=== PATIENT | female | born 1995 | race Caucasian/White ===

== ENCOUNTER 2018-01-17 21:17 | Emergency (ER) | payer BC, OTHER ==
[~2018-01-17] VITALS: Ht 162.6 cm; Wt 80.7 kg
[~2018-01-17 21:17] MED LIST: HYDROCODONE-ACE15 M2 PO; SPRINTEC1 EACH PO
[2018-01-17] MEDS ORDERED: ONE DAILY WOME1 EACH PO (21:29)
[2018-01-17] MEDS ORDERED: SUPER TWIN EP1250 MG PO (21:30)
[2018-01-17] MEDS ORDERED: TYLENOL WITH C1 EACH PO (21:31)
[2018-01-17] MEDS ORDERED: NORCO 5-325 TA1 EACH PO (22:55)
== END 2018-01-17 23:17 | disposition home or self-care (01) ==
LOC: ED 21:17
DX: R10.9 Unspecified abdominal pain (principal); M54.9 Dorsalgia, unspecified; T40.2X5A Adverse effect of other opioids, initial encounter; Z87.891 Personal history of nicotine dependence; Z88.5 Allergy status to narcotic agent; Z79.899 Other long term (current) drug therapy
CPT/HCPCS: 99283

== ENCOUNTER 2023-04-01 19:39 | Inpatient (IN) | payer OTHER ==
[~2023-04-01] VITALS: Ht 162.6 cm; Wt 90.4 kg
--- NOTE | ~2023-04-01 | PATH ---
[facility] [address] [place], [place] [address] Draft SPECIMEN(S): A PLACENTA SPECIMEN SOURCE: A. PLACENTA CLINICAL HISTORY: Mother's age: 25. OB history: A1 (elective). Gestational age: 39+. score: 8/9. Specific issues of concern: Non-reassuring heart tones/ intolerance to labor; patient with COVID; meconium. FINAL PATHOLOGIC DIAGNOSIS: Placenta (EGA: 39+ weeks): - Umbilical cord: - Three-vessel. - Acute funisitis. - membranes: - Marginal insertion. - Acute chorioamnionitis. - Placental disc: - 511-grams (50-75 percentile). - Amniotic surface with acute inflammation within vessels. - No villitis or neoplasm identified. JLP:mfr:C2NR MICROSCOPIC EXAMINATION: Histologic sections of all submitted blocks are examined by light microscopy. These findings, together with the gross examination, support the pathologic diagnosis. GROSS DESCRIPTION: The specimen, labeled and designated "[place], placenta," is received in formalin and consists of a ramirez discoid placenta with the following parameters: Umbilical cord: Insertion eccentric, measurement 24.2 cm in length x 1.2 cm in diameter; trivascular. Cord coiling index (per 10 cm): Two. Lesions: Not grossly identified. Membranes: Insertion site: Marginal, krishna/translucent. Other: Not grossly identified. Chorionic Plate: Normal radiating vascular pattern, blue-purple and shiny. Lesions: Not grossly identified. Other: Not grossly identified. PATIENT NAME: YOSELYN GILES PATHOLOGY DATE OF : [birth year] REPORT #: [id number] PHYSICIAN: SOFIA ROMERO PCP: SERGEI CASTELLANOS NP REPORT IS CONFIDENTIAL AND NOT TO BE RELEASED WITHOUT AUTHORIZATION [facility] [address] [place], [place] [address] Draft Maternal Surface: Normal cotyledons, intact. Lesions: Not grossly identified. Measurement: 17.0 x 16.0 x 5.3 cm; 511 g. Cut Surface: Maroon and spongy. Lesions: Not grossly identified. Basal plate fibrin 0.1 cm in thickness. Other Findings: Not grossly identified. Cassette Summary: (A1) Membranes and umbilical cord (A2) Placenta parenchyma (A3) Placenta parenchyma (A4) Placenta parenchyma AC (under the direct supervision of a pathologist) The Gross Description was prepared using a voice recognition system. The report was reviewed for accuracy; however, sound-alike word errors, addition and/or deletions may occur. If there is any question about this report, please contact Client Services. PERFORMING LABORATORY: Technical component was performed by [facility], [address] [place] [id number] (CLIA# [id number]). Professional interpretation was performed by [facility], [address] [place] [id number] (CLIA#: [id number]). Diagnostician: Urbano Wetzel MD Pathologist Electronically Signed 04/04/2023 Copies: ~ PATIENT NAME: YOSELYN GILES PATHOLOGY DATE OF : [birth year] REPORT #: [id number] PHYSICIAN: SOFIA ROMERO PCP: SERGEI CASTELLANOS NP REPORT IS CONFIDENTIAL AND NOT TO BE RELEASED WITHOUT AUTHORIZATION
[~2023-04-01 19:39] MED LIST changes: +NORCO 5-325 TA1 EACH PO; +ONE DAILY WOME1 EACH PO; +SUPER TWIN EP1250 MG PO; +TYLENOL WITH C1 EACH PO
--- NOTE | 2023-04-01 23:36 | PR ---
[facility] [address] [place], [place] [address] Signed Progress Notes IP Datetime Report Generated by PETTY: 04/01/2023 23:35 PROGRESS NOTES: [id number] Impression: Normal Progression of Labor; Reassuring Heart Rate Procedures: Artificial ROM; Sterile Vag Exam Plan: Continue Present Management; Anesthesia Consult VITAL SIGNS: [id number] Vital Signs: Reviewed VS Notable Details: HTN EXAM: [id number] Dilatation: 4.0 Effacement: 70 Station: -2 Contractions: q 2 to 4 min min MEMBRANES: [id number] Comments: Discussed her COVID test which was done on 03/23 though she became ill on 03/22. Progressing. status with some reserve given the accel with exam but unclear whether or not the fetus will tolerate strong and regular contractions. Will proceed with epidural now for pain management. BP entered severe range and she received labetalol. Will continue to closely observe. Will start mag sulfate for seizure prophylaxis now. FETUS A: [id number] FHR Baseline: 150 Variability: Moderate 6-25bpm Accelerations: None Decelerations: None FHR Category: Category II Presentation: Vertex Comments on Fetus A: reassuring with moderate variability currently FETUS B: [id number] Signing Physician: Jennifer Scott MD Copies: ~ *Electronically Signed* 04/01/23 4871 JENNIFER SCOTT MD PATIENT NAME: YOSELYN GILES PROGRESS NOTE DATE OF : [birth year] PHYSICIAN: JENNIFER SCOTT MD RPT #: [id number] REPORT IS CONFIDENTIAL AND NOT TO BE RELEASED WITHOUT AUTHORIZATION
[2023-04-02 06:47] VITALS: BP 95/84
--- NOTE | 2023-04-02 07:41 | NUR ---
04/02/23 0741 DillonLynne storm Thu 0631- PT TO PACU SLEEPING, LR WITH 30 UNITS OF PITOCIN INFUSING TO RAC 20 G IV, WNL. 20 G TO LW SALINE LOCK, WNL. TIGRE FLORES AT BEDSIDE, DTR 1+ NO CLONUS. FUNDUS FIRM AND 1 BELOW UMBILICUS. SMALL CLOTS ON BELKYS PAD. 0645- PT TO GO BACK TO [facility], ALERT AND ORIENTED, SHAKING BUT WARM. WARM BLANKETS PROVIDED. FUNDUS REMAINS FIRM AND 1 BELOW THE UMBILICUS, NO FURTHER DRAINAGE. OVIEDO CATHETER DRAINED, CLEAR YELLOW URINE. DTR 1+, NO CLONUS. PT ABLE TO TAKE SIPS OF WATER AND ANSWERING QUESTIONS APPROPRIATELY.
--- NOTE | 2023-04-02 12:47 | NUR ---
MOM IN BED WITH SEVERAL FAMILY MEMBERS IN ROOM. BABY IN NURSERY. MOM EXPRESSED ANXIOUSNESS TO MEET BABY BUT UNDERSTOOD BABY WAS RECEIVING NEEDED TREATMENT. CONSENTED TO PRAYER. PRAYED FOR HEALING AND STRENGTH WELL FOR PATIENCE WITH RECOVERY.
--- NOTE | 2023-04-03 12:50 | OR ---
[facility] [address] [place], [place] [address] Signed DATE OF OPERATION: 04/02/2023 SURGEON: Jennifer Scott MD CLOTHING SALES ASSISTANT: HENRIQUE Vaughan DO. PREOPERATIVE DIAGNOSES: Term , intolerance to labor, COVID, preeclampsia with severe features. POSTOPERATIVE DIAGNOSES: Term , intolerance to labor, COVID, preeclampsia with severe features, persistent OP, delivered. PROCEDURE: Primary section with low segment transverse uterine incision. ANESTHESIA: General. ESTIMATED BLOOD LOSS: 850 mL. DRAINS: Santiago catheter. INDICATIONS AND FINDINGS: The patient is a 27-year-old female, 2, para 0, VIP 1, who was admitted at 39+ weeks in active labor. status was not reassuring initially and biophysical profile was done, which was 2/8. Subsequently, however, the baby did appear to be reassuring with accelerations present. She also had severe category blood pressures requiring treatment with IV labetalol. She also received IV mag sulfate for seizure prolphylaxis. She received an epidural for pain control. Her blood pressures following the epidural were quite a bit lower than her initial blood pressures. She was closely monitored throughout the night with her labor, but status continued to be concerning. There were periods of time with minimal variability and recurrent lates. Multiple position changes were done without improvement. Because of the persistent nature of the tracing concerns, section was recommended. It should also be noted that she became ill on 03/22 and tested positive for COVID on Electronically Signed By: JENNIFER SCOTT MD 04/03/23 1250 PATIENT NAME: YOSELYN GILES OPERATIVE REPORT DATE OF : [birth year] REPORT #: [id number] PHYSICIAN: JENNIFER SCOTT MD PCP: SERGEI CASTELLANOS NP REPORT IS CONFIDENTIAL AND NOT TO BE RELEASED WITHOUT AUTHORIZATION [facility] [address] [place] [id number] Signed 03/23. She was consented and she taken to the operating room where she was delivered of a little girl via lower segment transverse uterine incision with Apgars 8 and 9 and a weight of 7 pounds, 8 ounces. The baby was ROP. Moderate meconium was noted at delivery as well. The uterus, tubes, ovaries, and placenta appeared normal. She did have some atony, which responded to IV pitocin, massage, and Cytotec suppository. PROCEDURE IN DETAIL: The patient was prepped and draped in the supine position. A Pfannenstiel skin incision was done and carried through the fascia and the incision extended laterally. The inferior and superior fascial flaps were created. The muscles were bluntly divided and the peritoneum was bluntly opened as well. The incision was extended bluntly and the Donovan retractor placed. The uterine incision was made at the upper aspect of the peritoneal reflection. The incision was extended bluntly. There was some moderate meconium noted on entering the uterus. The baby was delivered with the above findings and handed off to the pediatric staff in attendance. The placenta was removed manually and this was sent to pathology given her recent COVID status. The uterus was explored with a lap tape assuring no remaining fragments. The edges of the incision were identified. The uterus was closed in 2 layers using 0 Monocryl. The first layer was a running locking stitch. The 2nd was a vertical imbricating stitch. This area was irrigated, inspected, and bleeding points over the bladder flap were controlled with cautery. By this time, the uterus did have adequate tone and bleeding was felt to be managed. The Donovan retractor was removed and peritoneum identified and closed with a running suture of 3-0 Vicryl. The muscles were brought together in the midline with interrupted sutures of 0 Vicryl. Bleeding points were controlled with cautery. There was some bleeding in the superior fascial flap, which required a [id number] suture of 0 Vicryl as well. This area was irrigated, inspected, and found to be hemostatic. The fascia was then closed from each angle to the midline with a running suture of 0 Vicryl. The subcu layer was irrigated and bleeding points controlled with a cautery. The deep space was closed with interrupted sutures of 3-0 Vicryl. The skin was closed with krys. All sponge and needle counts were correct. She tolerated the procedure well and was taken to the recovery room in good condition. Jennifer Scott MD PJW/FIONA Electronically Signed By: JENNIFER SCOTT MD 04/03/23 1250 PATIENT NAME: YOSELYN GILES OPERATIVE REPORT DATE OF : [birth year] REPORT #: [id number] PHYSICIAN: JENNIFER SCOTT MD PCP: SERGEI CASTELLANOS NP REPORT IS CONFIDENTIAL AND NOT TO BE RELEASED WITHOUT AUTHORIZATION [address] [address] Signed /[id number] Copies: ~ Electronically Signed By: JENNIFER SCOTT MD 04/03/23 1250 PATIENT NAME: YOSELYN GILES OPERATIVE REPORT DATE OF : [birth year] REPORT #: [id number] PHYSICIAN: JENNIFER SCOTT MD PCP: SERGEI CASTELLANOS NP REPORT IS CONFIDENTIAL AND NOT TO BE RELEASED WITHOUT AUTHORIZATION
--- NOTE | 2023-04-04 10:04 | PR ---
[facility] [address] [facility] [place] [facility] [place], [place] [address] Signed PP Progress Notes Datetime Report Generated by CPN: 04/04/2023 10:04 SUBJECTIVE: [id number] Pain: Within Normal Limits Pain Comments: nauseated in the middle of the night only Nausea/Vomiting: Denies Flatus: Yes Vital Signs: [id number] Vital Signs: Reviewed; Within Normal Limits EXAM: Met Cardiovascular: Not Done Respiratory: Not Done Abdomen/Uterus: Abnormal Lochia: Normal Vulva/Perineum: Not Done Breasts: Not Done CVA Tenderness: Not Done Extremities: Normal Incision: Normal Progress: Normal Exam Comments: Fundus firm, NT @ U-1. H/H 8.4/26, WBC 15.2, plat 207k IMPRESSION/PLAN/PROCEDURES: [id number] Impression: Normal Progression Plan: Remove Rob; Discharge Other Plans: ambulate, shower Procedures: None Progress Notes: Doing well. She is ready for D/C. Signing Physician: Jennifer Scott MD Copies: ~ *Electronically Signed* 04/04/23 1004 JENNIFER SCOTT MD PATIENT NAME: PREWETT,YOSELYN FRENCH PROGRESS NOTE DATE OF : [birth year] PHYSICIAN: JENNIFER SCOTT MD RPT #: [id number] REPORT IS CONFIDENTIAL AND NOT TO BE RELEASED WITHOUT AUTHORIZATION
--- NOTE | 2023-04-04 13:38 | NUR ---
PT AND FAMILY PACKING UP. STATED LOOKING FORWARD TO BEING HOME IN OWN SPACE. WISHED THEM WELL. EXERCISED MINISTRY OF PRESENCE.
== END 2023-04-04 12:00 | disposition home or self-care (01) | DRG 786 ==
LOC: FBCO 19:39 → FBC 22:25 → FBCO 04-11 08:25
PROVIDERS: ADMIT Obstetrics & Gynecology; ATTEND Obstetrics & Gynecology
PROC: 4A033R1 Measurement of Arterial Saturation, Peripheral, Percutaneous Approach (ICD-10-PCS; 2023-04-02)
PROC: 10D00Z1 Extraction of Products of Conception, Low, Open Approach (ICD-10-PCS; principal; 2023-04-02 05:23)
DX: O14.14 Severe pre-eclampsia complicating childbirth (principal); U07.1 COVID-19; O98.52 Other viral diseases complicating childbirth; O77.0 Labor and delivery complicated by meconium in amniotic fluid; O76 Abnormality in fetal heart rate and rhythm complicating labor and delivery; O13.4 Gestational [pregnancy-induced] hypertension without significant proteinuria, complicating childbirth; O36.8130 Decreased fetal movements, third trimester, not applicable or unspecified; Z3A.39 39 weeks gestation of pregnancy; Z37.0 Single live birth; Z67.10 Type A blood, Rh positive; Z87.891 Personal history of nicotine dependence
CPT/HCPCS: 01961; 36415; 76818; 76942; 82565; 82570; 82803; 84156; 84450; 84520; 84550; 85025; 85027; 86850; 86900; 86901; 88307; A9270; J0131; J0456; J0690; J1100; J1644; J1885; J2250; J2274; J2371; J2405; J2590; J2795; J3010; J3475; J7121; U0002

== ENCOUNTER 2024-04-19 16:15 | Emergency (ER) | payer OTHER ==
[~2024-04-19] VITALS: Ht 162.6 cm; Wt 85.1 kg
[2024-04-19 18:06] VITALS: BP 126/86
== END 2024-04-19 18:06 | disposition home or self-care (01) ==
LOC: ED 16:15
DX: L03.111 Cellulitis of right axilla (principal); Z87.891 Personal history of nicotine dependence; Z88.5 Allergy status to narcotic agent; Z79.899 Other long term (current) drug therapy
CPT/HCPCS: 99282